=== PATIENT | female | born 1980 | race Asian ===

== ENCOUNTER → 2019-07-02 | Outpatient (CLI) | payer BC, OTHER | END | disposition home or self-care (01) | LOC: RAD 15:09 | PROVIDERS: ATTEND Family Medicine | DX: M47.812 Spondylosis without myelopathy or radiculopathy, cervical region (principal); M48.02 Spinal stenosis, cervical region; M41.82 Other forms of scoliosis, cervical region | CPT/HCPCS: 72050 ==

== ENCOUNTER 2021-01-12 08:20 | Outpatient (CLI) | payer BC ==
[2021-01-12 08:42] LABS: BASOPHILS % (AUTO) 0.3 % (0-1); EOSINOPHILS # (AUTO) 0.1 X10'3 (0-0.9); EOSINOPHILS % (AUTO) 1.7 % (0-6); HEMATOCRIT 39.9 % (35.0-45.0); HEMOGLOBIN 13.8 g/dl (12.0-16.0); LYMPHOCYTES # (AUTO) 1.3 X10'3 (1.1-4.8); LYMPHOCYTES % (AUTO) 14.7 % (21-51); MEAN CORPUSCULAR HEMOGLOBIN 30.4 PG (27.0-31.0); MEAN CORPUSCULAR HGB CONC 34.5 g/dL (33.0-36.5); MEAN PLATELET VOLUME 7.9 FL (7.4-10.4); MONOCYTES # (AUTO) 0.6 X10'3 (0-0.9); MONOCYTES % (AUTO) 7.4 % (2-12); NEUTROPHILS # (AUTO) 6.6 X10'3 (1.8-7.7); NEUTROPHILS % (AUTO) 75.9 % (42-75); PLATELET COUNT 264 X10'3 (140-440); RED BLOOD COUNT 4.54 X10'6 (4.20-5.60); RED CELL DISTRIBUTION WIDTH 12.9 % (11.5-14.5); WHITE BLOOD COUNT 8.7 X10'3 (4.5-11.0)
[2021-01-12] MEDS ORDERED: ROSU5TAB12 PO (11:09)
[2021-01-12] MEDS ORDERED: AMOX-117 PO (14:24)
== END 2021-01-12 23:59 | disposition home or self-care (01) ==
LOC: LAB 08:20
PROVIDERS: ATTEND Family Medicine
DX: I10 Essential (primary) hypertension (principal); R10.9 Unspecified abdominal pain; N83.8 Other noninflammatory disorders of ovary, fallopian tube and broad ligament
CPT/HCPCS: 36415; 74176; 85025

== ENCOUNTER 2021-01-12 09:47 | Inpatient (IN) | payer BC ==
[~2021-01-12] VITALS: Ht 157.5 cm; Wt 65.9 kg
[2021-01-12 10:04] VITALS: BP 137/88
[2021-01-12] MEDS ORDERED: normal saline 1000ML IV soln IVB ONE (10:15)
[2021-01-12 10:42] LABS: CLARITY,URINE CLEAR (Clear); COLOR,URINE YELLOW (Yellow); GLUCOSE, URINE NEGATIVE (Neg); KETONES,URINE NEGATIVE (Neg); LEUKOCYTE ESTERASE ,URINE NEGATIVE (Neg); NITRITES, URINE NEGATIVE (Neg); OCCULT BLOOD,URINE SMALL (Neg); PROTEIN,URINE NEGATIVE (Neg); UROBILINOGEN,URINE 0.2 E.U/dL (0.2-1.0)
[2021-01-12 10:44] LABS: UA COLLECTION TYPE CLN CATCH MIDSTREAM
[2021-01-12] MEDS ORDERED: magnesium 2GM in 50ml NS 50 ML IV PRN (10:45)
[2021-01-12] MEDS ORDERED: magnesium Cl slow-release 64mg tablet PO PRN (10:45)
[2021-01-12] MEDS ORDERED: potassium Cl 20 mEq SR tablet PO PRN ×2 (10:45)
[2021-01-12] MEDS ORDERED: magnesium 4gm in 100ml NS 100 ML IV PRN (10:45)
[2021-01-12] MEDS ORDERED: HYDROcodone/acetaminophen 5mg/325mg tablet PO PRN (10:45)
[2021-01-12] MEDS ORDERED: ondansetron/PF 4mg/2ml inj IV PRN (10:45)
[2021-01-12] MEDS ORDERED: magnesium hydroxide 30ml (MOM) UD suspension PO PRN (10:45)
[2021-01-12] MEDS ORDERED: morphine 2 MG/ML inj. syringe IV PRN ×2 (10:45)
[2021-01-12] MEDS ORDERED: normal saline 1000ml 1,000 ML IV SCH (10:45)
[2021-01-12] MEDS ORDERED: mag hydrox/Alum hydrox/simeth 30ml oral suspension PO PRN (10:45)
[2021-01-12] MEDS ORDERED: acetaminophen 325mg tablet PO PRN ×2 (10:45)
[2021-01-12] MEDS ORDERED: HYDROcodone/acetaminophen 10/325mg tab PO PRN (10:45)
[2021-01-12] MEDS ORDERED: potassium CL 10mEq/100ml bag 100 ML IV PRN (10:45)
[2021-01-12 10:50] LABS: MUCUS STRANDS MODERATE /LPF (Neg)
[2021-01-12 10:51] LABS: SQUAMOUS EPITHELIAL CELL,UR MODERATE /LPF (FEW)
[2021-01-12 10:52] LABS: WBC,URINE 0-4 /HPF (0-4)
[2021-01-12 10:53] LABS: RBC,URINE 0-2 /HPF (0-2)
[2021-01-12 10:57] LABS: BACTERIA,URINE FEW /HPF (Neg)
[2021-01-12] MEDS ORDERED: ROSU5TAB12 PO (11:09)
[2021-01-12 11:16] LABS: BASOPHILS % (AUTO) 0.4 % (0-1); EOSINOPHILS # (AUTO) 0.2 X10'3 (0-0.9); EOSINOPHILS % (AUTO) 1.8 % (0-6); HEMATOCRIT 40.1 % (35.0-45.0); HEMOGLOBIN 13.5 g/dl (12.0-16.0); LYMPHOCYTES # (AUTO) 1.6 X10'3 (1.1-4.8); LYMPHOCYTES % (AUTO) 19.2 % (21-51); MEAN CORPUSCULAR HEMOGLOBIN 29.8 PG (27.0-31.0); MEAN CORPUSCULAR HGB CONC 33.7 g/dL (33.0-36.5); MEAN CORPUSCULAR VOLUME 88.3 FL (78-98); MEAN PLATELET VOLUME 8.5 FL (7.4-10.4); MONOCYTES # (AUTO) 0.7 X10'3 (0-0.9); MONOCYTES % (AUTO) 8.2 % (2-12); NEUTROPHILS % (AUTO) 70.4 % (42-75); PLATELET COUNT 258 X10'3 (140-440); RED BLOOD COUNT 4.55 X10'6 (4.20-5.60); WHITE BLOOD COUNT 8.5 X10'3 (4.5-11.0)
[2021-01-12] MEDS ORDERED: piperacillin/tazo 3.375gm/50ml 50 ML IV SCH (11:25)
[2021-01-12 11:27] LABS: PARTIAL THROMBOPLASTIN TIME 29 SECONDS (22-32)
[2021-01-12 11:28] LABS: ALANINE AMINOTRANSFERASE 79 U/L (12-78); ALBUMIN 3.3 G/DL (3.4-5.0); ALBUMIN/GLOBULIN RATIO 0.8 (1.1-1.5); ALKALINE PHOSPHATASE 72 IU/L (46-116); ASPARTATE AMINO TRANSFERASE 41 U/L (10-37); BILIRUBIN,TOTAL 0.4 MG/DL (0.1-1.0); BLOOD UREA NITROGEN 13 MG/DL (7-18); CALCIUM 8.9 MG/DL (8.5-10.1); CREATININE 0.65 MG/DL (0.40-0.90); GLUCOSE 90 MG/DL (70-104); TOTAL CARBON DIOXIDE 26.1 MMOL/L (24-32); TOTAL PROTEIN 7.5 G/DL (6.4-8.2); eGFR > 90 ML/MIN
[2021-01-12 11:40] LABS: ANION GAP 9 (8-16); CHLORIDE 102 MMOL/L (99-107); POTASSIUM 3.6 MMOL/L (3.5-5.1); SODIUM 137 MMOL/L (135-145)
[2021-01-12] MEDS ORDERED: AMOX-117 PO (14:24)
--- NOTE | 2021-01-12 15:42 | NUR ---
DISCUSSED THE NEED FOR SURGERY WITH PT ALSO. PT DECIDED NOT TO HAVE SURGERY AT THIS TIME . PT WOULD LIKE TO PICK ON SURGEON. PT EDUCATED ON THE NECESSITY OF SURGERY. PT DISCUSSED WITH AND WILL LEAVE AMA AFTER IV ABX'S COMPLETE. SACHI GARCIA DISCUSSED THE NEED FOR SURGERY SHARI. SACHI GARCIA SPOKE WITH PT'S CHOICE PHYSICIAN DR. WILDER. HE ADVISED TO SEND HOME WITH ABX'S AND FOLLOW UP AT HIS OFFICE NEXT WEEK AND HE WILL SCHEDULE SURGERY. DR. SILVA, THE ADMITTING HOSPITALIST, INFORMED OF THIS. OR CALLED AND CASE CANCELLED FOR TODAY.
[2021-01-12] MEDS ORDERED: heparin, porcine 5000 units/ml vial SQ SCH (20:00)
[2021-01-12] MEDS ORDERED: K and/or MAG REPLACEMENT MC SCH (20:00)
[2021-01-12] MEDS ORDERED: temazepam 15mg capsule PO PRN (21:00)
== END 2021-01-12 17:35 | disposition left against medical advice (07) | DRG 395 ==
LOC: ER 09:48 → ED HOLD 10:19
PROVIDERS: ADMIT Internal Medicine; ATTEND Internal Medicine
DX: K35.80 Unspecified acute appendicitis (principal); K38.1 Appendicular concretions; Z53.29 Procedure and treatment not carried out because of patient's decision for other reasons; E78.5 Hyperlipidemia, unspecified; Z20.822 Contact with and (suspected) exposure to COVID-19; E78.00 Pure hypercholesterolemia, unspecified; Z98.51 Tubal ligation status
CPT/HCPCS: 36415; 80053; 81001; 82948; 83605; 85025; 85610; 85730; 87040; 87635; 99285; C9803; G0378; J2543; J7030

== ENCOUNTER 2021-02-26 16:30 | Outpatient (CLI) | payer BC ==
[~2021-02-26 16:30] MED LIST: ROSU5TAB12 PO
== END 2021-02-26 23:59 | disposition home or self-care (01) ==
LOC: 64 CT 16:30
PROVIDERS: ATTEND Family Medicine
DX: R10.9 Unspecified abdominal pain (principal)
CPT/HCPCS: 74176

== ENCOUNTER 2024-02-26 16:31 | Outpatient (CLI) | payer BC ==
[~2024-02-26 16:31] MED LIST changes: -ROSU5TAB12 PO; +ROSU5TAB51 PO
== END 2024-02-26 23:59 | disposition home or self-care (01) ==
LOC: RAD 16:31
PROVIDERS: ATTEND Family Medicine
DX: M25.511 Pain in right shoulder (principal)
CPT/HCPCS: 73030